=== PATIENT | female | born 1995 | race Caucasian/White ===

== ENCOUNTER 2017-10-03 23:16 | Emergency (ER) | payer OTHER ==
[2017-10-04 00:22] LABS: ABSOLUTE EOSINOPHILS # (AUTO) 0.1 10^3/uL (0.0-0.6); ABSOLUTE LYMPHOCYTES (AUTO) 2.8 10^3/uL (0.5-4.7); ABSOLUTE MONOCYTES (AUTO) 0.5 10^3/uL (0.1-1.4); ABSOLUTE NEUT (AUTO) 3.5 10^3/uL (1.7-8.2); BASOPHILS % (AUTO) 0.3 % (0-2); EOSINOPHILS % (AUTO) 2.1 % (0-6); HEMATOCRIT 39.1 % (36.0-47.0); HEMOGLOBIN 13.5 g/dL (12.0-15.5); LYMPHOCYTES % (AUTO) 39.7 % (13-45); MEAN CORPUSCULAR HEMOGLOBIN 29.9 pg (27.0-33.4); MEAN CORPUSCULAR HGB CONC 34.5 g/dL (32.0-36.0); MEAN CORPUSCULAR VOLUME 87 fl (80-97); PLATELET COUNT 270 10^3/uL (150-450); RED BLOOD COUNT 4.52 10^6/uL (3.72-5.28); RED CELL DISTRIBUTION WIDTH 13.3 % (11.5-14.0); SEGMENTED NEUTROPHILS % (AUTO) 50.9 % (42-78); TOTAL CELLS COUNTED % (AUTO) 100 %; WHITE BLOOD COUNT 6.9 10^3/uL (4.0-10.5)
[2017-10-04 00:27] LABS: APPEARANCE,URINE CLEAR; BILIRUBIN,URINE NEGATIVE (NEGATIVE); COLOR,URINE STRAW; GLUCOSE, URINE NEGATIVE (NEGATIVE); KETONES,URINE NEGATIVE (NEGATIVE); LEUKOCYTE ESTERASE,URINE NEGATIVE (NEGATIVE); NITRITE,URINE NEGATIVE (NEGATIVE); PROTEIN,URINE NEGATIVE (NEGATIVE); URINE SPECIFIC GRAVITY 1.006; UROBILINOGEN,URINE NEGATIVE mg/dL (<2.0)
--- NOTE | 2017-10-04 02:04 | RADIOLOGY REPORT (SQ) ---
EXAM DESCRIPTION: US TRANSVAGINAL COMPLETED DATE/TME: 10/04/2017 00:15 CLINICAL HISTORY: 21 years, Female, bleeding in last menstrual period 08/08/2017. Beta hCG of 13,267 COMPARISON: None. TECHNIQUE: Complete first trimester obstetrical ultrasound obtained with transvaginal imaging. FINDINGS: The uterus measures 9.8 x 6.6 x 4.6 cm. Possible arcuate contour of the uterus. At the rightward aspect of the endometrial canal there is a single gestational sac. pole is identified with a crown-rump length of 0.36 cm compatible with an estimated gestational age of 6 weeks, 0 days. Estimated delivery date of 05/30/2018. heart rate of 118 beats for minute. Yolk sac is normal appearance. Tiny amount of free pelvic fluid. The cervix measures 2.6 cm and is closed. The right ovary measures 3.1 x 2.5 x 2.7 cm. The left ovary measures 3.6 x 2.5 x 2.8 cm. Limited color and spectral Doppler imaging demonstrates flow within the ovaries bilaterally. IMPRESSION: 1. Single live intrauterine with estimated gestational age of 6 weeks, 0 days. Heart rate of 118 beats for minute. 2. Possible arcuate contour of the uterus. 3. Tiny amount of free pelvic fluid is likely physiologic. 2011 [employer]- All Rights Reserved
--- NOTE | 2017-10-04 02:35 | ER Document Report ---
ED General - General Chief Complaint: Vag Bleeding, +preg <12wks Stated Complaint: CRAMPING AND VAGINAL BLEEDING Time Seen by Provider: 10/04/17 00:13 Notes: Patient is a pleasant 21-year-old female who is and is first trimester of her first . She presents because she had some bleeding and cramping after having sex. She denies any vomiting. No fevers. No abnormal vaginal discharge. She did have her blood work performed approximately 2 weeks ago and at that time her hCG level was 938. She is a follow-up appointment with an OB doctor on the . She has not yet had an ultrasound performed. Is unsure where her blood type is. TRAVEL OUTSIDE OF THE [place] IN LAST 30 DAYS: No - Related Data Allergies/Adverse Reactions: No Known Allergies Allergy (Unverified 10/03/17 23:21) Past Medical History - General Last Menstrual Period: 08/08/17 - Social History Smoking Status: Current Every Day Smoker Frequency of alcohol use: None Drug Abuse: None Family History: Reviewed & Not Pertinent Patient has suicidal ideation: No Patient has homicidal ideation: No Renal/ Medical History: Denies: Hx Peritoneal Dialysis Review of Systems - Review of Systems Notes: My Normal Review Basic REVIEW OF SYSTEMS: CONSTITUTIONAL : Denies fever, chills, or sweats. Denies recent illness. RESPIRATORY: Denies cough, cold, or chest congestion. Denies shortness of breath, difficulty breathing, or wheezing. GASTROINTESTINAL: Some lower abdominal cramping which has since resolved.. Denies nausea, vomiting, or diarrhea. GENITOURINARY: Denies difficulty urinating, painful urination, burning, frequency, or blood in urine. FEMALE GENITOURINARY: Vaginal bleeding. Currently MUSCULOSKELETAL: Denies neck or back pain or joint pain or swelling. SKIN: Denies rash or skin lesions. NEUROLOGICAL: Denies altered mental status or loss of consciousness. Denies headache. Denies weakness or paralysis or loss of use of either side. Denies problems with gait or speech. Denies sensory or motor loss. ALL OTHER SYSTEMS REVIEWED AND NEGATIVE. Physical Exam - Vital signs Vitals: Temp Pulse Resp BP Pulse Ox 98.4 F 73 17 119/73 100 10/03/17 23:22 10/03/17 23:22 10/03/17 23:22 10/03/17 23:22 10/03/17 23:22 - Notes Notes: General Appearance: Well nourished, alert, cooperative, no acute distress, no obvious discomfort. Well appearing. Vitals: reviewed, See vital signs table. Eyes: PERRL, EOMI, Conjuctiva clear Mouth: No decreasd moisture Lungs: No wheezing, No rales, No rhonci, No accessory muscle use, good air exchange bilaterally. Heart: Normal rate, Regular rythm, No murmur, no rub Abdomen: Normal BS, soft, No rigidity, No abdominal tenderness, No guarding, no rebound, no abdominal masses, no organomegaly Pelvic exam: Normal external genitalia. No blood in vaginal vault. No abnormal discharge. No pain during exam. Cervical loss is closed. Extremities: no edema. Skin: warm, dry, appropriate color, no rash Neuro: speech clear, oriented x 3, normal affect, responds appropriately to questions. Course - Re-evaluation Re-evalutation: 10/04/17 05:39 Patient looks very well on exam. See any concerning findings. Ultrasound was performed and showed an IUP with a heart rate of 112. And informed patient that this is a little lower than we like to see however this is not necessarily mean that she does have any complications of at this time. Her hCG has been trending upwards appropriately. Informed her that to avoid sexual activity for the next 5-7 days and follow-up closely with her OB doctor as scheduled. I encouraged her return to ER immediately if she has fevers, current bleeding, worsening pain, or she feels unwell. Patient agrees with plan will be discharged home. Dictation of this chart was performed using voice recognition software; therefore, there may be some unintended grammatical errors. - Vital Signs Vital signs: Temp Pulse Resp BP Pulse Ox 98.6 F 65 14 109/64 99 10/04/17 02:45 10/04/17 02:45 10/04/17 02:45 10/04/17 02:45 10/04/17 02:45 - Laboratory Result Diagrams: 10/04/17 00:05 10/04/17 00:05 Laboratory results interpreted by me: 10/04/17 10/04/17 00:05 00:10 Beta HCG, Quant 66919.00 H Urine Blood LARGE H Discharge - Discharge Clinical Impression: Vaginal bleeding during Condition: Good Disposition: HOME, SELF-CARE Additional Instructions: Please return to the ER immediately if you have recurrent bleeding, worsening abdominal pain, or do not feel well. Please avoid sexual activity for the next 5 days. Follow up with your OB doctor on the as scheduled. You blood type is A+. Take vitamins.
[2017-10-04 02:48] VITALS: BP 109/64
== END 2017-10-04 02:49 | disposition home or self-care (01) ==
LOC: ER 23:16
DX: O46.91 Antepartum hemorrhage, unspecified, first trimester (principal); O99.331 Smoking (tobacco) complicating pregnancy, first trimester; Z3A.11 11 weeks gestation of pregnancy
CPT/HCPCS: 36415; 76817; 81001; 84702; 85025; 86900; 86901; 93976; 99284

== ENCOUNTER 2018-05-14 19:25 | Outpatient (CLI) | payer OTHER ==
[2018-05-14 19:54] LABS: APPEARANCE,URINE CLOUDY; BILIRUBIN,URINE NEGATIVE (NEGATIVE); COLOR,URINE YELLOW; GLUCOSE, URINE NEGATIVE (NEGATIVE); KETONES,URINE NEGATIVE (NEGATIVE); LEUKOCYTE ESTERASE,URINE MODERATE (NEGATIVE); NITRITE,URINE NEGATIVE (NEGATIVE); PROTEIN,URINE NEGATIVE (NEGATIVE); UROBILINOGEN,URINE NEGATIVE mg/dL (<2.0)
[2018-05-14 20:11] LABS: URINE AMPHETAMINES SCREEN NEGATIVE; URINE BARBITURATES SCREEN NEGATIVE; URINE BENZODIAZEPINES SCREEN NEGATIVE; URINE COCAINE SCREEN NEGATIVE; URINE MARIJUANA (THC) SCREEN NEGATIVE; URINE METHADONE SCREEN NEGATIVE; URINE PHENCYCLIDINE SCREEN NEGATIVE
--- NOTE | 2018-05-14 20:20 | Non Stress Test Report ---
Non Stress Test Datetime Report Generated by CPN: 05/14/2018 20:20 DEMOGRAPHIC Test Number: 1 EGA NST: 37.5 INDICATION Indication for Study: Decreased Movement; Ordered by Provider VITAL SIGNS Pulse - NST: 99 RESP - NST: 14 NBPSYS NST: 124 NBPDIA NST: 77 URINE RESULTS Urine Protein, NST: Negative Urine Ketones - NST: Negative Urine Glucose - NST: Negative Urine Blood - NST: Negative MONITORING Monitor Explained: Monitor Explained; Test Explained; Patient Verbalized Understanding Time on Monitor: 05/14/2018 19:39 NST INTERVENTIONS NST Interventions: PO Hydration Physician Notified NST: Dr. Meade BABY A: [id number] BABY A Movement : Present; Decreased FHR Baseline : 130 Accelerations : 15X15 Decelerations : None Variability : Moderate 6-25bpm NST Review: Meets Criteria for Reactive NST NST Review and Verified By : Archie Hdz RN NST Results: Reactive NST REPORT Report Trigger: Send Report
== END 2018-05-14 20:31 | disposition home or self-care (01) ==
LOC: LC 19:25
PROVIDERS: ATTEND Obstetrics & Gynecology Gynecology
PROC: 4A1HXCZ Monitoring of Products of Conception, Cardiac Rate, External Approach (ICD-10-PCS; principal; 2018-05-14)
DX: O36.8130 Decreased fetal movements, third trimester, not applicable or unspecified (principal); Z3A.37 37 weeks gestation of pregnancy
CPT/HCPCS: 59025; 80307; 81005

== ENCOUNTER 2018-05-17 14:09 | Inpatient (IN) | payer OTHER ==
[2018-05-17 14:38] LABS: APPEARANCE,URINE SLIGHTLY-CLOUDY; BILIRUBIN,URINE NEGATIVE (NEGATIVE); COLOR,URINE YELLOW; GLUCOSE, URINE 150 mg/dL (NEGATIVE); KETONES,URINE NEGATIVE (NEGATIVE); LEUKOCYTE ESTERASE,URINE NEGATIVE (NEGATIVE); NITRITE,URINE NEGATIVE (NEGATIVE); PROTEIN,URINE 30 mg/dL (NEGATIVE); URINE SPECIFIC GRAVITY 1.029; UROBILINOGEN,URINE NEGATIVE mg/dL (<2.0)
--- NOTE | 2018-05-17 14:43 | Admission Physical ---
Datetime Report Generated by CPN: 05/17/2018 14:43 CURRENT ADMISSION Chief Complaint: Uterine Contractions Chief Complaint Other: contractions Indication for Induction: Not Applicable Admit Impression : Term, Intrauterine Admit Impression- Other: active labor Admit Plan: Admit to Unit; Initiate Labor Protocol ALLERGIES Medication Allergies: No Medication Allergies: No Known Allergies (05/14/2018) Latex: Unknown OBSTETRICAL HISTORY EDC: 05/30/2018 00:00 : 1 Para: 0 Term: 0 : 0 SAB: 0 IAB: 0 Ectopic: 0 Livin Cesareans: 0 VBACs: 0 Multiple Births: 0 Gestational Diabetes: No Rh Sensitization: No Incompetent Cervix: No YOMAIRA: No Infertility: No ART Treatment: No Uterine Anomaly: No IUGR: No Hx Previous C/S: No Macrosomia: No Hx Loss/Stillborn: No PIH: No Hx : No Placenta Previa/Abruption: No Depression/PP Depression: No PTL/PROM: No Post Hemorrhage: No Current Procedures: Ultrasound Obstetrical History Comments: G1- current SEE RECORDS Alcohol: No Marijuana : No Cocaine: No Other Illicit Drugs: No Cigarettes: Current Everyday Smoker. 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 Heart Disease: No Hosp/Surgery: No Autoimmune Disorder: No Anesthetic Complications: No Kidney Disease: No Abnormal Pap Smear: No Neuro/Epilepsy: No Psychiatric Disorders: No Other Medical Diseases: No Hepatitis/Liver Disease: No Significant Family History: No Varicosities/Phlebitis: No Trauma/Violence : No Thyroid Dysfunction: No Medical History Comments: 2017 SIL [facility] COTOctober 2018 (Annotations: Data stored by N on behalf of user) INFECTIOUS HISTORY Gonorrhea: No Genital Herpes: No Chlamydia: No Tuberculosis: No Syphilis: No Hepatitis: No HIV/AIDS Exposure: No Rash or Viral Illness: No HPV: No PHYSICAL EXAM General: Normal HEENT: Normal Neurologic: Normal Thyroid: Deferred Heart: Normal Lungs: Normal Breast: Deferred Back: Normal Abdomen: Normal Genitourinary Exam: Normal Extremities: Normal DTRs: Deferred Pelvic Type: Not Done Vital Signs: Reviewed VAGINAL EXAM Dilatation: 6 Effacement: c Station: bbow Contraction Comments: q2-3 mins MEMBRANES Pooling: Negative Membranes: Bulging FETUS A EGA: 38.1 Monitoring: External US FHR- Baseline: 135 Variability: Moderate 6-25bpm Accelerations: 15X15 Estimated Weight (gm): 3200 Presentation: Vertex Admit Comment: at 38w1d presented in active labor. GBS neg. P: routine labor care, anticipate PLANS FOR LABOR AND DELIVERY Labor and Delivery: None Pain Management: None Feeding Preference: Both Benefit of Breast Feed Discussed: Yes Circumcision: Yes INFORMED CONSENT Informed Consent Obtained: Vaginal Delivery Assignment: Rohan Villar MD Signature: with User ID: [email or web address] : with User ID: [email or web address]
[2018-05-17 14:56] LABS: URINE AMPHETAMINES SCREEN NEGATIVE; URINE BARBITURATES SCREEN NEGATIVE; URINE BENZODIAZEPINES SCREEN NEGATIVE; URINE COCAINE SCREEN NEGATIVE; URINE MARIJUANA (THC) SCREEN NEGATIVE; URINE METHADONE SCREEN NEGATIVE; URINE PHENCYCLIDINE SCREEN NEGATIVE
[2018-05-17 14:56] LABS: ABSOLUTE LYMPHOCYTES (AUTO) 0.8 10^3/uL (0.5-4.7); ABSOLUTE MONOCYTES (AUTO) 0.7 10^3/uL (0.1-1.4); ABSOLUTE NEUT (AUTO) 11.7 10^3/uL (1.7-8.2); BASOPHILS % (AUTO) 0.1 % (0-2); EOSINOPHILS % (AUTO) 0.1 % (0-6); HEMOGLOBIN 11.5 g/dL (12.0-15.5); LYMPHOCYTES % (AUTO) 6.1 % (13-45); MEAN CORPUSCULAR HEMOGLOBIN 29.7 pg (27.0-33.4); MEAN CORPUSCULAR VOLUME 85 fl (80-97); MONOCYTES % (AUTO) 5.1 % (3-13); PLATELET COUNT 238 10^3/uL (150-450); RED BLOOD COUNT 3.88 10^6/uL (3.72-5.28); RED CELL DISTRIBUTION WIDTH 14.5 % (11.5-14.0); SEGMENTED NEUTROPHILS % (AUTO) 88.6 % (42-78); TOTAL CELLS COUNTED % (AUTO) 100 %; WHITE BLOOD COUNT 13.3 10^3/uL (4.0-10.5)
[2018-05-17] MEDS ORDERED: RINGERS SOLUTION,LACTATED 300 ML IV ONE (15:00)
[2018-05-17] MEDS ORDERED: RINGERS SOLUTION,LACTATED 1,000 ML IV PRN (15:00)
[2018-05-17] MEDS ORDERED: OXYTOCIN/NORMAL SALINE 20 UNIT/1,000 ML RTUINJ ONE (15:16)
[2018-05-17] MEDS ORDERED: MISOPROSTOL 0.2 MG TABLET ONE (15:16)
[2018-05-17] MEDS ORDERED: LIDOCAINE 1% INJ-PF (10 MG/ML) 30 ML SDV ONE (15:16)
[2018-05-17] MEDS ORDERED: NALBUPHINE HCL INJ 10 MG/1 ML AMPULE ONE (17:01)
[2018-05-17] MEDS ORDERED: NALBUPHINE HCL INJ 10 MG/1 ML AMPULE INJ ONE (17:05)
[2018-05-17] MEDS ORDERED: PROMETHAZINE HCL 25 MG SUPP.RECT PR PRN (18:18)
[2018-05-17] MEDS ORDERED: ZOLPIDEM TARTRATE 5 MG TABLET PO PRN (18:18)
[2018-05-17] MEDS ORDERED: PROMETHAZINE HCL INJ 25 MG/1 ML VIAL IV PRN (18:18)
[2018-05-17] MEDS ORDERED: MEASLES,MUMPS&RUBELLA VACC/PF 0.5 ML VIAL SUBCUT PRN (18:18)
[2018-05-17] MEDS ORDERED: NA PHOS,M-B/NA PHOS,DI-BA (ADULT) 133 ML ENEMA PR PRN (18:18)
[2018-05-17] MEDS ORDERED: PROMETHAZINE HCL 25 MG TABLET PO PRN (18:18)
[2018-05-17] MEDS ORDERED: BENZOCAINE/MENTHOL AEROSOL SPRAY 56 ML TOP PRN (18:18)
[2018-05-17] MEDS ORDERED: DIPH/PERTUSS(ACELL)/TETANUS VAC/PF 0.5 ML SYR (>=10YO) IM PRN (18:18)
[2018-05-17] MEDS ORDERED: GLYCERIN/WITCH HAZEL LEAF 1 EACH MED..PAD TP PRN (18:18)
[2018-05-17] MEDS ORDERED: ACETAMINOPHEN WITH CODEINE #3 TABLET PO PRN (18:18)
[2018-05-17] MEDS ORDERED: DIPHENHYDRAMINE HCL 25 MG CAPSULE PO PRN (18:18)
[2018-05-17] MEDS ORDERED: MAGNESIUM HYDROXIDE SUSP 30 ML UDCUP PO PRN (18:18)
[2018-05-17] MEDS ORDERED: OXYTOCIN/NORMAL SALINE 20 UNIT/1,000 ML RTUINJ IV PRN (18:18)
[2018-05-17] MEDS ORDERED: PSEUDOEPHEDRINE HCL 30 MG TABLET PO PRN (18:18)
[2018-05-17] MEDS ORDERED: DIBUCAINE 1% OINTMENT 28 GM TP PRN (18:18)
[2018-05-17] MEDS ORDERED: ACETAMINOPHEN 650 MG SUPP.RECT PR PRN (18:18)
[2018-05-17] MEDS ORDERED: ACETAMINOPHEN WITH CODEINE #3 TABLET ONE (19:44)
[2018-05-17] MEDS: ACETAMINOPHEN WITH CODEINE #3 TABLET PO PRN (19:46)
[2018-05-17] MEDS: FAMOTIDINE 20 MG TABLET PO SCH (21:37)
[2018-05-17] MEDS: IBUPROFEN 800 MG TABLET PO SCH (21:38)
[2018-05-18] MEDS: IBUPROFEN 800 MG TABLET PO SCH ×3 (05:38→22:34)
[2018-05-18 07:55] LABS: HEMATOCRIT 28.7 % (36.0-47.0); HEMOGLOBIN 9.9 g/dL (12.0-15.5); MEAN CORPUSCULAR HEMOGLOBIN 29.7 pg (27.0-33.4); MEAN CORPUSCULAR HGB CONC 34.6 g/dL (32.0-36.0); MEAN CORPUSCULAR VOLUME 86 fl (80-97); PLATELET COUNT 211 10^3/uL (150-450); RED BLOOD COUNT 3.34 10^6/uL (3.72-5.28); RED CELL DISTRIBUTION WIDTH 14.3 % (11.5-14.0); WHITE BLOOD COUNT 14.3 10^3/uL (4.0-10.5)
--- NOTE | 2018-05-18 10:34 | PDOC PROGRESS REPORT ---
Subjective-OB Progress Note for:: 05/18/18 - PP Day #1, doing well, , A+, Rubella immune. Physical Exam (OB) Vital Signs: Temp Pulse Resp BP Pulse Ox 98.0 F 66 17 112/60 97 05/18/18 08:03 05/18/18 08:03 05/18/18 08:03 05/18/18 08:03 05/18/18 08:03 Intake & Output 05/17/18 05/18/18 05/19/18 06:59 06:59 06:59 Intake Total 900 Balance 900 Weight 74.1 kg - PIH/Pre-Eclampsia DTR's: 2 + Clonus: Negative Headache: Absent Epigastric Pain: No Visual Changes: No - Dressing Removed: No - Lochia Lochia Amount: Small 10-25 ml Lochia Color: Rubra/Red - Abdomen Description: Firm, Round Hernia Present: No Fundal Description: Firm Fundal Height: u/u - u/2 - Respiratory Respiratory Status: No respiratory distress - Abdominal Distension: No distension - Genitourinary Genitourinary Note: voiding - Extremities Upper extremity: Normal inspection Lower extremities: Normal inspection - Neurological Cognition: Normal Orientation: AAOx4, Alert - Psychological Associated symptoms: Normal affect, Normal mood - Skin Skin Temperature: Warm Skin Moisture: Dry Objective-Diagnostic Laboratory: 05/18/18 07:26 05/17/18 05/17/18 05/17/18 14:19 14:46 14:46 WBC 13.3 H RBC 3.88 Hgb 11.5 L Hct 33.0 L MCV 85 MCH 29.7 MCHC 35.0 RDW 14.5 H Plt Count 238 Seg Neutrophils % 88.6 H Lymphocytes % 6.1 L Monocytes % 5.1 Eosinophils % 0.1 Basophils % 0.1 Absolute Neutrophils 11.7 H Absolute Lymphocytes 0.8 Absolute Monocytes 0.7 Absolute Eosinophils 0.0 Absolute Basophils 0.0 Urine Color YELLOW Urine Appearance SLIGHTLY-CLOUDY Urine pH 7.0 Ur Specific [place] 1.029 Urine Protein 30 H Urine Glucose (UA) 150 H Urine Ketones NEGATIVE Urine Blood NEGATIVE Urine Nitrite NEGATIVE Ur Leukocyte Esterase NEGATIVE Blood Type A POSITIVE Antibody Screen NEGATIVE 05/18/18 07:26 WBC 14.3 H RBC 3.34 L Hgb 9.9 L Hct 28.7 L MCV 86 MCH 29.7 MCHC 34.6 RDW 14.3 H Plt Count 211 Seg Neutrophils % Lymphocytes % Monocytes % Eosinophils % Basophils % Absolute Neutrophils Absolute Lymphocytes Absolute Monocytes Absolute Eosinophils Absolute Basophils Urine Color Urine Appearance Urine pH Ur Specific [place] Urine Protein Urine Glucose (UA) Urine Ketones Urine Blood Urine Nitrite Ur Leukocyte Esterase Blood Type Antibody Screen Assessment and Plan(PN) - Time Spent with Patient Time with patient: Less than 15 minutes Medications reviewed and adjusted accordingly: Yes - Disposition Anticipated Discharge: Home Within: within 24 hours
[2018-05-18] MEDS: SENNOSIDES/DOCUSATE 8.6-50 MG 1 EACH TABLET PO SCH (10:55)
[2018-05-18] MEDS: DOCUSATE SODIUM 100 MG CAPSULE PO SCH ×2 (10:55→18:48)
[2018-05-18] MEDS: FAMOTIDINE 20 MG TABLET PO SCH ×2 (10:55→22:34)
[2018-05-18] MEDS: PRENATAL VITAMIN W DHA CAPSULE PO SCH (10:55)
[2018-05-18] MEDS: FERROUS SULFATE 325 MG TABLET PO SCH ×2 (10:55→18:48)
[2018-05-18] MEDS: ACETAMINOPHEN WITH CODEINE #3 TABLET PO PRN (11:04)
[2018-05-19] MEDS: IBUPROFEN 800 MG TABLET PO SCH (06:13)
[2018-05-19] MEDS: PRENATAL VITAMIN W DHA CAPSULE PO SCH (09:54)
[2018-05-19] MEDS: FAMOTIDINE 20 MG TABLET PO SCH (09:54)
--- NOTE | 2018-05-19 09:54 | PDOC DISCHARGE SUMMARY ---
Final Diagnosis Discharge Date: 05/19/18 - Final Diagnosis (1) Vaginal delivery Is this a current diagnosis for this admission?: Yes Discharge Data - Discharge Medication Home Medications: Ferrous Sulfate [Iron] 1 tab PO DAILY 05/17/18 Reason(s) for Admission: Onset of Labor Procedures: NST Intrapartum Procedure(s): Spontaneous Vaginal Delivery Complication(s): Laceration-Labial Laceration-Degree: 1st - Diagnosis Test Laboratory: Temp Pulse Resp BP Pulse Ox 97.5 F 65 15 102/61 98 05/19/18 07:56 05/19/18 07:56 05/19/18 07:56 05/19/18 07:56 05/19/18 07:56 05/17/18 05/17/18 05/18/18 14:19 14:46 07:26 RBC 3.88 3.34 L Hgb 11.5 L 9.9 L Hct 33.0 L 28.7 L Urine Opiates Screen NEGATIVE - Discharge information/Instructions Discharge Activity: Balance Activity w/Rest, Pelvic Rest Discharge Diet: Regular Disposition: HOME, SELF-CARE Follow up with: [facility] in: 3, Weeks
[2018-05-19] MEDS: FERROUS SULFATE 325 MG TABLET PO SCH (09:55)
[2018-05-19] MEDS: DOCUSATE SODIUM 100 MG CAPSULE PO SCH (09:55)
[2018-05-19] MEDS: SENNOSIDES/DOCUSATE 8.6-50 MG 1 EACH TABLET PO SCH (09:55)
[2018-05-19 12:39] VITALS: BP 125/70
--- NOTE | 2018-05-26 17:07 | Delivery Summary ---
Del Sum A-C Datetime Report Generated by CPN: 05/26/2018 17:07 DELIVERY PERSONNEL DELIVERY PERSONNEL: [id number] Delivery Doctor:: Rohan Villar MD Labor and Delivery Nurse:: GEORGE Jones Labor and Delivery Nurse:: Abbi Wilde RN Nursery Nurse:: Zohreh Baird RN Medicaid Specialist/CAREER DEVELOPMENT COORDINATOR: Crystaljesus Bansal, CAREER DEVELOPMENT COORDINATOR II MATERNAL INFORMATION Delivery Anesthesia: None Medications After Delivery: Pitocin Bolus-Please Comment; Pitocin Drip 20 Units/1000ml NSS Meds After Delivery Comment: Pitocin 20 units in 1 L NS bolusing per order Estimated Blood Loss (ml): 125 Maternal Complications: None LABOR SUMMARY EDC: 05/30/2018 00:00 No. Babies in Womb: 1 Attempted: No Labor Anesthesia: IV Sedation LABOR INFORMATION Reason for Induction: Not Applicable Onset of Labor: 05/17/2018 14:00 Complete Dilatation: 05/17/2018 17:44 Oxytocin: N/A Group B Beta Strep: negative Antibiotics # of Doses: 0 Antibiotics Time of Last Dose: n/a Name of Antibiotic Given: n/a Steroids Given: None Reason Steroids Not Administered: Not Applicable MEMBRANES Membranes Rupture Method: Artificial Rupture of Membranes: 05/17/2018 16:12 Length of Rupture (hr): 1.83 Amniotic Fluid Color: Clear Amniotic Fluid Amount: Moderate Amniotic Fluid Odor: Normal STAGES OF LABOR Stage 1 hr: 3 Stage 1 min: 44 Stage 2 hr: 0 Stage 2 min: 18 Stage 3 hr: 0 Stage 3 min: 9 Total Time in Labor hr: 4 Total Time in Labor min: 11 VAGINAL DELIVERY Episiotomy: None Laceration #1: None; Vaginal Laceration Extension #1: N/A Laceration #2: Vaginal Laceration Extension #2: N/A Laceration #3: None Laceration Extension #3: N/A Other Laceration: bilateral labial Laceration Repair: Yes Laceration Repair Note: bilateral labial tears repaired with interupted sutures of 3-0 chromic sutures. Sponge Count Correct: N/A; Vaginal Sweep Performed Sharps Count Correct: N/A CSECTION DELIVERY Primary Indication: N/A Secondary Indication: N/A CSection Incidence: N/A Labor: N/A Elective: N/A CSection Incision: N/A BABY A INFORMATION Delivery Date/Time: 05/17/2018 18:02 Method of Delivery: Vaginal Born in Route : No : N/A Forceps: N/A Vacuum Extraction: N/A Shoulder Dystocia : No PRESENTATION/POSITION BABY A Presentation: Cephalic Presentation: Cephalic Presentation: Cephalic Cephalic Presentation: Vertex Vertex Position: Left Occipital Anterior Breech Presentation: N/A PLACENTA INFORMATION BABY A Placenta Delivery Time : 05/17/2018 18:11 Placenta Method of Delivery: Spontaneous Placenta Status: Delivered SCORES BABY A Heart Rate 1 min: >100 bpm Resp Effort 1 min: Good Cry Reflex Irritability 1 min: Cough or Sneeze or Pulls Away Muscle Tone 1 min: Active Motion Color 1 min: Blue/Pale Resuscitation Effort 1 min: Tactile Stimulation SCORE 1 MIN: 8 Heart Rate 5 min: >100 bpm Resp Effort 5 min: Good Cry Reflex Irritability 5 min: Cough or Sneeze or Pulls Away Muscle Tone 5 min: Active Motion Color 5 min: Body [place], Extremities Blue Resuscitation Effort 5 min: N/A SCORE 5 MIN: 9 INFANT INFORMATION BABY A Gestational Age at Delivery: 38.1 Gestational Status: Early Term- 37- 38.6 Weeks Outcome : Liveborn Condition : Stable Infant Sex: Male IDENTIFICATION BABY A Infant Verification Date/Time: 05/17/2018 18:24 ID Band Number: [id number] Mother's Name Verified: Yes RN Verifying Infant: Renetta Camp RNC Additional Verifying Personnel: Joaquina Donnelly RN WEIGHT/LENGTH BABY A Birthweight (gm): 2859 Weight (lb): 6 Weight (oz): 5 Infant Length (in): 19.00 Infant Length (cm): 48.26 CORD INFORMATION BABY A No. Cord Vessels: 3 Nuchal Cord : N/A Cord Blood Taken: Yes-For Storage (Mom's Blood type +) Suction: None ASSESSMENT BABY A Infant Complications: None Physical Findings at Delivery: Bruising Physical Findings- Other: facial bruising Respirations: Appears Normal Skin to Skin: Yes Skin to Skin: Yes Skin to Skin: Yes News Production Assistant/ALS Called : No Infant Care By: Beck Baird RN Transferred To: Remains with Mother BABY B INFORMATION : N/A SIGNATURES Signature: with User ID: [email or web address] : I was personally available for consultation and serving as supervising physician for the MLP.
== END 2018-05-19 14:21 | disposition home or self-care (01) | DRG 807 ==
LOC: LC 14:09 → LR 14:29 → 2S 20:22
PROVIDERS: ADMIT Obstetrics & Gynecology; ATTEND Obstetrics & Gynecology
PROC: 10E0XZZ Delivery of Products of Conception, External Approach (ICD-10-PCS; principal; 2018-05-17)
PROC: 0UQMXZZ Repair Vulva, External Approach (ICD-10-PCS; 2018-05-17)
PROC: 10907ZC Drainage of Amniotic Fluid, Therapeutic from Products of Conception, Via Natural or Artificial Opening (ICD-10-PCS; 2018-05-17)
PROC: 4A1HXCZ Monitoring of Products of Conception, Cardiac Rate, External Approach (ICD-10-PCS; 2018-05-17)
DX: O70.0 First degree perineal laceration during delivery (principal); Z37.0 Single live birth; O99.334 Smoking (tobacco) complicating childbirth; F17.210 Nicotine dependence, cigarettes, uncomplicated; Z3A.38 38 weeks gestation of pregnancy
CPT/HCPCS: 36415; 80307; 81005; 85025; 85027; 86592; 86850; 86900; 86901; J2300; J2590; J3490

== ENCOUNTER → 2019-01-20 | Outpatient (CLI) | payer OTHER ==
[2019-01-20 17:11] LABS: T.VAGINALIS (WET MOUNT) NO TRICHOMONAS SEEN; WBCS (WET MOUNT) FEW WBCS SEEN; YEAST (WET MOUNT) YEAST SEEN
[2019-01-20 17:12] LABS: BACTERIA (WET MOUNT) 3+ BACTERIA SEEN; EPITHELIALS (WET MOUNT) 3+ EPITHELIALS SEEN
[2019-01-20 18:42] LABS: CHLAM PCR NOT DETECTED (NOT DETECT)
== END ==
LOC: LAB 17:06
PROVIDERS: ATTEND Nurse Practitioner Family
DX: N89.8 Other specified noninflammatory disorders of vagina (principal); R30.0 Dysuria
CPT/HCPCS: 87086; 87210; 87491; 87591

== ENCOUNTER 2019-05-09 12:19 | Emergency (ER) | payer OTHER ==
--- NOTE | 2019-05-09 13:04 | ER Document Report ---
ED Medical Screen (RME) - General Chief Complaint: Vaginal Bleeding Stated Complaint: HEAVY FLOW PERIOD/CRAMPS/PRESSURE Time Seen by Provider: 05/09/19 13:01 Primary Care Provider: LISBETH KRISHNAN FNP-C [Primary Care Provider] - Follow up as needed Information source: Patient Notes: Patient presents complaining of heavy vaginal bleeding with pelvic cramping for the past 3 days. Patient states she is passing clots. Patient denies any lightheadedness or dizziness. Patient does not take any control at this time. I have greeted and performed a rapid initial assessment of this patient. A comprehensive ED assessment and evaluation of the patient, analysis of test results and completion of the medical decision making process will be conducted by additional ED providers. TRAVEL OUTSIDE OF THE [place] IN LAST 30 DAYS: No - Related Data Allergies/Adverse Reactions: No Known Allergies Allergy (Verified 05/09/19 13:00) Past Medical History Renal/ Medical History: Denies: Hx Peritoneal Dialysis Physical Exam - Vital signs Vitals: Temp Pulse Resp BP Pulse Ox 98.5 F 100 16 128/83 H 99 05/09/19 12:55 05/09/19 12:55 05/09/19 12:55 05/09/19 12:55 05/09/19 12:55 - Abdominal Tenderness: Tender - Lower pelvic Course - Vital Signs Vital signs: Temp Pulse Resp BP Pulse Ox 98.5 F 100 16 128/83 H 99 05/09/19 12:55 05/09/19 12:55 05/09/19 12:55 05/09/19 12:55 05/09/19 12:55 Doctor's Discharge - Discharge Referrals: LISBETH KRISHNAN FNP-C [Primary Care Provider] - Follow up as needed
[2019-05-09 13:59] LABS: ABSOLUTE EOSINOPHILS # (AUTO) 0.1 10^3/uL (0.0-0.6); ABSOLUTE LYMPHOCYTES (AUTO) 1.4 10^3/uL (0.5-4.7); ABSOLUTE MONOCYTES (AUTO) 0.5 10^3/uL (0.1-1.4); ABSOLUTE NEUT (AUTO) 5.2 10^3/uL (1.7-8.2); BASOPHILS % (AUTO) 0.2 % (0-2); EOSINOPHILS % (AUTO) 1.8 % (0-6); HEMATOCRIT 41.6 % (36.0-47.0); HEMOGLOBIN 14.6 g/dL (12.0-15.5); LYMPHOCYTES % (AUTO) 18.8 % (13-45); MEAN CORPUSCULAR HEMOGLOBIN 30.4 pg (27.0-33.4); MEAN CORPUSCULAR HGB CONC 35.2 g/dL (32.0-36.0); MEAN CORPUSCULAR VOLUME 86 fl (80-97); MONOCYTES % (AUTO) 6.8 % (3-13); PLATELET COUNT 255 10^3/uL (150-450); RED BLOOD COUNT 4.82 10^6/uL (3.72-5.28); RED CELL DISTRIBUTION WIDTH 13.3 % (11.5-14.0); SEGMENTED NEUTROPHILS % (AUTO) 72.4 % (42-78); TOTAL CELLS COUNTED % (AUTO) 100 %; WHITE BLOOD COUNT 7.2 10^3/uL (4.0-10.5)
[2019-05-09 14:16] LABS: ANION GAP 13 (5-19); BLOOD UREA NITROGEN 9 mg/dL (7-20); CALCIUM 9.5 mg/dL (8.4-10.2); CARBON DIOXIDE 26 mmol/L (22-30); CHLORIDE 103 mmol/L (98-107); GLUCOSE 95 mg/dL (75-110); POTASSIUM 4.3 mmol/L (3.6-5.0)
--- NOTE | 2019-05-09 14:58 | RADIOLOGY REPORT (SQ) ---
EXAM DESCRIPTION: U/S NON OB PEL TV W/DOPPLER COMPLETED DATE/TIME: 05/09/2019 2:44 pm REASON FOR STUDY: pelvic pain, heavy bleeding COMPARISON: None. TECHNIQUE: Dynamic and static grayscale images acquired of the pelvis via transvaginal approach and recorded on PACS. Additional selected color Doppler and spectral images recorded. LIMITATIONS: None. FINDINGS: UTERUS: Contour normal. No mass. ENDOMETRIAL STRIPE: No focal or generalized thickening. No masses. CERVIX: No nabothian cysts. RIGHT OVARY AND DOPPLER: Normal size. No worrisome masses. Normal arterial vascular flow without evid ence for torsion. LEFT OVARY AND DOPPLER: Normal size. No worrisome masses. Normal arterial vascular flow without evide nce for torsion. FREE FLUID: Minimal free fluid, probably physiologic. OTHER: No other significant finding. MEASUREMENTS: UTERUS: 5.0 x 6.7 x 8.9 cm. ENDOMETRIAL STRIPE: 7 mm. RIGHT OVARY: 2.4 x 2.8 x 4.6 cm. LEFT OVARY: 2.8 x 2.8 x 4.7 cm. IMPRESSION: NORMAL TRANSVAGINAL PELVIC ULTRASOUND. TECHNICAL DOCUMENTATION: JOB ID: [id number] [employer]- All Rights Reserved Rev-09/09 Reading location - IP/workstation name: [email or web address]
--- NOTE | 2019-05-09 15:50 | ER Document Report ---
ED General - General Chief Complaint: Vaginal Bleeding Stated Complaint: HEAVY FLOW PERIOD/CRAMPS/PRESSURE Time Seen by Provider: 05/09/19 13:01 Primary Care Provider: LISBETH KRISHNAN FNP-C [NURSE PRACTITIONER] - Follow up in 3-5 days Mode of Arrival: Ambulatory Information source: Patient Notes: 23-year-old female presents emergency department presents to the emergency department with complaints of heavy vaginal bleeding with clots for the past 3 days. She reports she used to have heavy bleeding years ago but got better after taking control. She reports her last menstrual period was in January. She did denies fever vomiting diarrhea. Reports abdominal cramps. She also reports her mother had the same kind of bleeding concerns. TRAVEL OUTSIDE OF THE [place] IN LAST 30 DAYS: No - HPI Onset: Other Onset/Duration: Persistent Quality of pain: Cramping Associated symptoms: None Exacerbated by: Denies Relieved by: Denies Similar symptoms previously: No Recently seen / treated by doctor: No - Related Data Allergies/Adverse Reactions: No Known Allergies Allergy (Verified 05/09/19 13:00) Past Medical History - General Information source: Patient Last Menstrual Period: 01/2019 - Social History Smoking Status: Current Every Day Smoker Chew tobacco use (# tins/day): No Frequency of alcohol use: Occasional Drug Abuse: None Lives with: Family Family History: Reviewed & Not Pertinent Patient has suicidal ideation: No Patient has homicidal ideation: No - Medical History Medical History: Negative Renal/ Medical History: Denies: Hx Peritoneal Dialysis Surgical Hx: Negative Review of Systems - Review of Systems Notes: Review HPI for review of systems., All other systems negative Physical Exam - Vital signs Vitals: Temp Pulse Resp BP Pulse Ox 98.5 F 100 16 128/83 H 99 05/09/19 12:55 05/09/19 12:55 05/09/19 12:55 05/09/19 12:55 05/09/19 12:55 - Notes Notes: PHYSICAL EXAMINATION: GENERAL: Well-appearing and in no acute distress HEAD: Atraumatic, normocephalic. EYES: extraocular movements intact, sclera anicteric, conjunctiva are normal. ENT: nares patent, Moist mucous membranes. NECK: Normal range of motion, supple without lymphadenopathy LUNGS: CTAB and equal. No wheezes rales or rhonchi. HEART: Regular rate and rhythm without murmurs ABDOMEN: Soft, no tenderness. No guarding, no rebound EXTREMITIES: Normal range of motion, no pitting edema. No cyanosis. NEUROLOGICAL: Cranial nerves grossly intact. PSYCH: Normal mood, normal affect. SKIN: Warm, Dry, normal turgor, no rashes or lesions noted Course - Re-evaluation Re-evalutation: 05/09/19 19:12 23-year-old female presents emergency department with complaints of heavy menses with clots for the past 3 days. No other complaints such as fever vomiting diarrhea. No complaints of shortness of breath or chest pain. Reports she used to have heavy menses before she took control before she had her child. She is not had a menses since January. Labs are unremarkable ultrasound negative. Patient was instructed on this instructed to follow back up with her [employer] [employer], [facility] to discuss possibly control and to monitor the bleeding. She denies pain with void. Denies vaginal discharge. S he is not worried about an STD. Laboratory 05/09/19 05/09/19 05/09/19 13:35 13:35 13:35 WBC 7.2 RBC 4.82 Hgb 14.6 Hct 41.6 MCV 86 MCH 30.4 MCHC 35.2 RDW 13.3 Plt Count 255 Lymph % (Auto) 18.8 Miller % (Auto) 6.8 Eos % (Auto) 1.8 Baso % (Auto) 0.2 Absolute Neuts (auto) 5.2 Absolute Lymphs (auto) 1.4 Absolute Monos (auto) 0.5 Absolute Eos (auto) 0.1 Absolute Basos (auto) 0.0 Seg Neutrophils % 72.4 Sodium 141.7 Potassium 4.3 Chloride 103 Carbon Dioxide 26 Anion Gap 13 BUN 9 Creatinine 0.81 Est GFR ( Amer) > 60 Est GFR (MDRD) Non-Af > 60 Glucose 95 Calcium 9.5 Serum HCG, Qual NEGATIVE Urine Color Urine Appearance Urine pH Ur Specific Brinklow Urine Protein Urine Glucose (UA) Urine Ketones Urine Blood Urine Nitrite Urine Bilirubin Urine Urobilinogen Ur Leukocyte Esterase Urine WBC (Auto) Urine RBC (Auto) U Hyaline Cast (Auto) Urine Bacteria (Auto) Urine Red Cell Clumps Urine WBC Clumps Squamous Epi Cells Auto U Non-Squamous Epis Auto Calcium Carbonate Cryst Calcium Phosphate Cryst Calcium Oxalate Cr Auto Leucine Crystals Cystine Crystals Uric Acid Cryst (Auto) Triple Phos Cryst (Auto) Tyrosine Crystals Amorphous Sediment Auto Cellular Casts Epithelial Casts (Auto) Fatty Casts Granular Casts (Auto) Waxy Casts (Auto) Broad Casts RBC Casts (Auto) WBC Casts (Auto) Urine Mucus (Auto) U Trichomonas (Auto) Ur Yeast w Hyphae Urine Yeast (Budding) Urine Ascorbic Acid Chlamydia DNA (PCR) N.gonorrhoeae DNA (PCR) 05/09/19 05/09/19 13:35 13:35 WBC RBC Hgb Hct MCV MCH MCHC RDW Plt Count Lymph % (Auto) Miller % (Auto) Eos % (Auto) Baso % (Auto) Absolute Neuts (auto) Absolute Lymphs (auto) Absolute Monos (auto) Absolute Eos (auto) Absolute Basos (auto) Seg Neutrophils % Sodium Potassium Chloride Carbon Dioxide Anion Gap BUN Creatinine Est GFR ( Amer) Est GFR (MDRD) Non-Af Glucose Calcium Serum HCG, Qual Urine Color Cancelled Urine Appearance Cancelled Urine pH Cancelled Ur Specific Brinklow Cancelled Urine Protein Cancelled Urine Glucose (UA) Cancelled Urine Ketones Cancelled Urine Blood Cancelled Urine Nitrite Cancelled Urine Bilirubin Cancelled Urine Urobilinogen Cancelled Ur Leukocyte Esterase Cancelled Urine WBC (Auto) Cancelled Urine RBC (Auto) Cancelled U Hyaline Cast (Auto) Cancelled Urine Bacteria (Auto) Cancelled Urine Red Cell Clumps Cancelled Urine WBC Clumps Cancelled Squamous Epi Cells Auto Cancelled U Non-Squamous Epis Auto Cancelled Calcium Carbonate Cryst Cancelled Calcium Phosphate Cryst Cancelled Calcium Oxalate Cr Auto Cancelled Leucine Crystals Cancelled Cystine Crystals Cancelled Uric Acid Cryst (Auto) Cancelled Triple Phos Cryst (Auto) Cancelled Tyrosine Crystals Cancelled Amorphous Sediment Auto Cancelled Cellular Casts Cancelled Epithelial Casts (Auto) Cancelled Fatty Casts Cancelled Granular Casts (Auto) Cancelled Waxy Casts (Auto) Cancelled Broad Casts Cancelled RBC Casts (Auto) Cancelled WBC Casts (Auto) Cancelled Urine Mucus (Auto) Cancelled U Trichomonas (Auto) Cancelled Ur Yeast w Hyphae Cancelled Urine Yeast (Budding) Cancelled Urine Ascorbic Acid Cancelled Chlamydia DNA (PCR) Cancelled N.gonorrhoeae DNA (PCR) Cancelled Transvaginal US 05/09/19 13:03 IMPRESSION: NORMAL TRANSVAGINAL PELVIC ULTRASOUND. - Vital Signs Vital signs: Temp Pulse Resp BP Pulse Ox 98.5 F 86 18 115/75 98 05/09/19 16:45 05/09/19 16:45 05/09/19 16:45 05/09/19 16:45 05/09/19 16:45 - Laboratory Result Diagrams: 05/09/19 13:35 05/09/19 13:35 - Diagnostic Test Radiology reviewed: Reports reviewed Discharge - Discharge Clinical Impression: Vaginal bleeding Condition: Stable Disposition: HOME, SELF-CARE Instructions: Vaginal Bleeding ([facility]), [facility] ([facility]) Additional Instructions: *You have been evaluated for vaginal bleeding Monitor your bleeding. Return to the emergency department for heavy bleeding, bleeding through a large cortex per hour. *Follow up with your [employer] RES[employer]ATION CLERK or the health department for recheck within 1 week Take Tylenol as indicated for pain *Return to ED for worsening condition, changes, needs, severe bleeding, concerns Referrals: LISBETH KRISHNAN FNP-C [NURSE PRACTITIONER] - Follow up in 3-5 days
[2019-05-09 16:46] VITALS: BP 115/75
== END 2019-05-09 16:47 | disposition home or self-care (01) ==
LOC: ER 12:19
DX: N93.8 Other specified abnormal uterine and vaginal bleeding (principal); F17.210 Nicotine dependence, cigarettes, uncomplicated
CPT/HCPCS: 36415; 76830; 80048; 84703; 85025; 93976; 99284